=== PATIENT | female | born 1970 | race Caucasian/White ===

== ENCOUNTER → 2017-06-07 | Outpatient (CLI) | payer BC ==
--- NOTE | 2017-06-08 09:11 | MM ---
Reason for exam: screening (asymptomatic). Last mammogram was performed 1 year and 1 month ago. History: Patient is postmenopausal. Physical Findings: A clinical breast exam by your physician is recommended on an annual basis and results should be correlated with mammographic findings. MG Screening Mammo w CAD Bilateral CC and MLO view(s) were taken. Prior study comparison: May 06, 2016, bilateral MG screening mammo w CAD. September 04, 2013, CAD bilateral diagnostic mammogram. The breast tissue is heterogeneously dense. This may lower the sensitivity of mammography. There is no discrete abnormality. No significant changes when compared with prior studies. ASSESSMENT: Negative, BI-RAD 1 RECOMMENDATION: Routine screening mammogram of both breasts in 1 year.
== END | disposition home or self-care (01) ==
LOC: RADMAMWWP 15:20
PROVIDERS: ATTEND Obstetrics & Gynecology
DX: Z12.31 Encounter for screening mammogram for malignant neoplasm of breast (principal)

== ENCOUNTER → 2017-07-20 | Outpatient (CLI) | payer BC ==
--- NOTE | 2017-07-20 12:30 | US ---
EXAMINATION TYPE: Ultrasound MSK LEFT FOOT DATE OF EXAM: 07/20/2017 COMPARISON: NONE CLINICAL HISTORY: 47-year-old female Foot Pain, Lt Foot M79.672. Additional history collected by the emergency medical dispatcher: Right bunionectomy 2 yrs ago; new onset of pain at 2-3rd MTP joint; feels like a palpable area at ball of foot when walking; pain at the dorsal surface too around 1-3 MTP joints; started 1 yr ago--getting worse. Technique: Targeted sonographic examination between the second and third metatarsal heads at the seco nd webspace corresponding to the focal site of patient's pain. Findings: Scanning at the second webspace at the site of patient's pain shows an irregular hypoechoic structure measuring 8 x 9 x 7 mm interposed between the second-third metatarsal heads. There is some vasculari ty around this area. Some images show somewhat more cystic appearance. IMPRESSION: Either a 9 mm intermetatarsal bursal effusion or Nunn's neuroma within the second web space at the site of patient's pain. Difficult to differentiate as some of the images show a somewhat cystic appea sharif.
== END | disposition home or self-care (01) ==
LOC: RADUSWWP 08:58
PROVIDERS: ATTEND Family Medicine
DX: M79.672 Pain in left foot (principal)

== ENCOUNTER 2020-07-07 08:02 | Day surgery (SDC) | payer OTHER ==
[2020-07-01 16:02] VITALS: BMI 23.8
--- NOTE | 2020-07-06 09:26 | HP ---
HISTORY AND PHYSICAL CHIEF COMPLAINT: Right shoulder pain. 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 She notes anterior and lateral pain along with clicking and weakness. She is having pain with any overhead use and at night. She has been taking medications for this with persistent 10 out of 10 pain level. She has tried medications in addition to an injection and home exercises without any real relief. PAST MEDICAL HISTORY: Significant for hypothyroidism. PAST SURGICAL HISTORY: Significant for bilateral foot surgery in addition to a left rotator cuff repair. MEDICATIONS: 1. Cyclobenzaprine. 2. Ibuprofen. 3. Synthroid. 4. Tramadol. ALLERGIES: She denies drug allergies. FAMILY HISTORY: Significant for lung disease. SOCIAL HISTORY: Negative for current tobacco or alcohol use. REVIEW OF SYSTEMS: Sixteen-point review of systems is otherwise reviewed and is noncontributory. PHYSICAL EXAMINATION: On examination, the patient is approximately 5 feet 2 inches, 130 pounds of mesomorphic habitus. HEENT exam is nonfocal. Neck is supple. On the right shoulder, she is tender about the anterior subacromial space. She has moderate subacromial crepitus. Active range of motion of the right shoulder; forward elevation 155, external rotation with arm to side 70 degrees, internal rotation to T11. Motor strength is 5 minus over 5 for abduction and external rotation. Impingement test, Neer test are positive. Her distal neurovascular exam appears intact in the right upper extremity. MRI report for the right shoulder on 06/03/2020 shows evidence of an anterior supraspinatus tear along with AC joint arthritis. IMPRESSION: 1. Right shoulder impingement with symptomatic rotator cuff tear. 2. Right acromioclavicular joint synovitis/arthritis. RECOMMENDATIONS: I talked to the patient at length regarding her condition and treatment options. At this point, she is quite symptomatic and limited because of pain with use and at night despite previous conservative measures. After thorough discussion, she opts to proceed with surgery. We will proceed with right shoulder arthroscopic evaluation with probable subacromial decompression, rotator cuff repair, and possible distal clavicular resection. We will likely perform that as an outpatient procedure. Risks and benefits were discussed at length in layman's terms. MMODL / IJN: [id number] / MTDD
[~2020-07-07 08:02] MED LIST: DEXAMETHASONE SOD PHOSPHATE 4 MG/ML 1 ML VIAL IV ONE; LACTATED RINGERS 1,000 ML IV SCH; LIDOCAINE 1% (10MG/ML) FOR IV START INTRADERMA PRN; MIDAZOLAM 2 MG/2 ML VIAL IV PRN; ONDANSETRON 4 MG/2 ML VIAL IVP ONE
[2020-07-07] MEDS ORDERED: MIDAZOLAM 2 MG/2 ML VIAL IVP ONE (08:57)
[2020-07-07] MEDS ORDERED: GLYCOPYRROLATE 0.2 MG/ML 2 ML VIAL ONE (09:22)
[2020-07-07] MEDS ORDERED: PHENYLEPHRINE 10 MG/ML VIAL ONE (09:22)
[2020-07-07] MEDS ORDERED: fentaNYL (PF) 50 MCG/ML 2 ML AMP ONE (09:22)
[2020-07-07] MEDS ORDERED: SUCCINYLCHOLINE CHLORIDE 100 MG/5 ML SYR IV ONE (09:22)
[2020-07-07] MEDS ORDERED: MIDAZOLAM 2 MG/2 ML VIAL ONE (09:22)
[2020-07-07] MEDS ORDERED: NEOSTIGMINE 1 MG/ML 10 ML VIAL ONE (09:22)
[2020-07-07] MEDS ORDERED: PROPOFOL 10 MG/ML 20 ML VIAL IV ONE (09:22)
[2020-07-07] MEDS ORDERED: ROCURONIUM 10 MG/ML (10 ML VIAL) IV ONE (09:22)
[2020-07-07] MEDS ORDERED: LIDOCAINE 1% INJ 10MG/ML (20 ML MDV) ONE (09:22)
[2020-07-07] MEDS ORDERED: EPINEPHrine (PF) 1 ML in SODIUM CHLORIDE 0.9% IRRIGATIO 3,000 ML IRRIGATION ONE ×8 (09:27)
[2020-07-07] MEDS ORDERED: LACTATED RINGERS 1,000 ML IV ONE ×2 (09:27→13:07)
--- NOTE | 2020-07-07 11:02 | P.OP ---
Date of Procedure: 07/07/20 Preoperative Diagnosis: Symptomatic right rotator cuff tear Postoperative Diagnosis: 2 cm tear right rotator cuff, acromioclavicular joint arthritis/impingement Procedure(s) Performed: Right shoulder arthroscopic subacromial decompression/rotator cuff repair/distal clavicular resection Implants: Arthrex 4.75 mm swivel lock anchor 4 Anesthesia: elisa FINLEY Surgeon: Heriberto Macario Leather Sprayer #1: Luis F Santa Estimated Blood Loss (ml): 10 Pathology: none sent Condition: stable Disposition: PACU Indications for Procedure: The patient's a 50-year-old female who presents with progressive right shoulder pain despite conservative treatment. A discussion of the risks and benefits of operative intervention versus continued conservative measures was made with patient. She opted to proceed with surgery. Operative risks to include infection, neurovascular injury, development of blood clots, possible tendon rerupture, possible postoperative stiffness and need for subsequent procedures was discussed. Informed consent was obtained. Operative Findings: As below Description of Procedure: The patient was brought to the operating room, and after induction of general a nesthesia was placed in a beachchair position. A preoperative interscalene block was placed for postoperative analgesia. I examined the right shoulder. There was no gross block to passive motion or gross glenohumeral instability. The right upper extremity was prepped and draped in normal fashion. The bony outlines the acromion, distal clavicle, and coracoid process were outlined with a skin marker. The glenohumeral joint was inflated with 50 mL of saline utilizing a spinal needle from posterior approach. A posterior portal was made through a 5 mm skin incision 1 cm medial and inferior to the posterior lateral border time. A blunt trocar was used to easily into the joint. Diagnostic arthroscopy was performed. An anterior portal was made just lateral to the coracoid process entering the joint above the subscapularis tendon. The subscapularis tendon appeared to be intact. Anterior labrum was intact. The inferior recess was inspected. The posterior labrum was intact. The intra- articular portion of the proximal biceps was intact along with its anchor. On inspection the rotator cuff, a 2 cm tear involving the supraspinatus was noted with minimal retraction. A lateral portal was made 2 centimeters inferior to the anterior lateral border of the acromion. This was then easily brought back to the greater tuberosity. The soft tissue on the undersurface of the acromion was debrided with a motorized shaver and electrocautery clearly defining the anterior medial and lateral borders as well as the distal clavicle. An anterior inferior acromioplasty was performed with a motorized lauren starting anterolateral, then extending this posteriorly, then extending this medially. I converted to a flat acromion and this was verified in the posterior and lateral viewing portals. The distal 4 mm of clavicle was resected as there was impingement in the subacromial space. The greater tuberosity was lightly decorticating with a shaver down to a bleeding bony surface. An accessory superior lateral portals made just off the lateral edge of the acromion for anchor placement. 2 anchors were then placed just off the articular surface with the appropriate starting awl. 4.75 mm anchors preloaded with #2 fiber tape were placed. Good purchase was obtained. These fiber tapes were then passed the rotator cuff with a scorpion suture passer. A lateral row was created cri sscrossing these tapes. 4.75 mm swivel lock anchors x2 were placed laterally. Good purchase was obtained. Final arthroscopic view showed adequate compression at the footprint. The arthroscope was then removed. The portals were closed with simple 3-0 nylon sutures. A sterile dressing was applied in addition to an abductor brace. The patient was then awoken from general anesthesia and transfe rred to recovery room in good condition. Blood loss was estimated at 10 mL. No complications were incurred. Sponge and needle counts were correct in the case. Terell KIRK assisted and the major components of the case to include arm positioning, anchor placement, and rotator cuff repair.
--- NOTE | 2020-07-07 11:04 | P.ANPRN ---
Procedure Note - Anesthesia - Nerve Block Performed Right Interscalene Single Time Out Performed: Yes Date of Procedure: 07/07/20 Procedure Start Time: :00 Procedure Stop Time: :03 Location of Patient: PreOp Indication: Acute Post-Operative Pain, Requested by Surgeon Sedation Type: Sedate with meaningful contact maintained Preparation: Sterile Prep Position: Supine Needle Types: Pajunk Needle Gauge: 21 Ultrasound used to visualize needle placement: Yes Ultrasound used to observe medication spread: Yes Blood Aspirated: No Pain Paresthesia on Injection Noted: No Resistance on Injection: Normal Image Stored and Saved: Yes Events: Uneventful and Well Tolerated (ropi .5% 20cc plus dexamethasone 4mg)
[2020-07-07] MEDS: HYDROmorphone 1 MG/ML 1 ML SYRINGE IVP ONE ×3 (11:22→11:58)
[2020-07-07 11:24] VITALS: TEMP 97
[2020-07-07] MEDS: fentaNYL (PF) 50 MCG/ML 2 ML AMP IV PRN ×2 (11:36→11:41)
[2020-07-07] MEDS ORDERED: KETOROLAC 15 MG/ML 1 ML VIAL IVP ONE (11:59)
[2020-07-07] MEDS ORDERED: MEPERIDINE 50 MG/ML SYRINGE IVP ONE (12:25)
[2020-07-07 13:06] VITALS: RESP 16
[2020-07-07] MEDS ORDERED: oxyCODONE-APAP 5-325MG 1 EACH TAB ONE (13:31)
[2020-07-07] MEDS ORDERED: oxyCODONE-APAP 5-325MG 1 EACH TAB PO ONE (13:33)
[2020-07-07 14:15] VITALS: BP 137/87; PULSE 84
== END 2020-07-07 14:25 | disposition home or self-care (01) ==
LOC: OR 08:02
PROVIDERS: ATTEND Orthopaedic Surgery
DX: M75.101 Unspecified rotator cuff tear or rupture of right shoulder, not specified as traumatic (principal); M19.011 Primary osteoarthritis, right shoulder; M25.811 Other specified joint disorders, right shoulder; E03.9 Hypothyroidism, unspecified; Z98.890 Other specified postprocedural states; Z79.899 Other long term (current) drug therapy; Z79.1 Long term (current) use of non-steroidal anti-inflammatories (NSAID); Z79.890 Hormone replacement therapy; Z79.891 Long term (current) use of opiate analgesic; Z82.5 Family history of asthma and other chronic lower respiratory diseases
CPT/HCPCS: 64415; 76942; 29827; 29826; 29824; C1713; C1894; J2250; J1100; J2370; J2710; J2175; J2405; J0690; J0171; J2001; J3010; J1170; J1885; J0330; J2704

== ENCOUNTER → 2021-07-15 | Outpatient (CLI) | payer OTHER ==
--- NOTE | 2021-07-16 10:56 | MM ---
Reason for exam: screening (asymptomatic). Last mammogram was performed 4 years and 1 month ago. History: Patient is postmenopausal. Pre-pectoral silicone gel implants in both breasts, November 2020. Physical Findings: A clinical breast exam by your physician is recommended on an annual basis and results should be correlated with mammographic findings. MG Screening Mammo Implant/CAD Bilateral CC, MLO, and ID view(s) were taken. Prior study comparison: June 07, 2017, bilateral MG screening mammo w CAD. May 06, 2016, bilateral MG screening mammo w CAD. The breast tissue is extremely dense which could obscure a lesion on mammography. There is no discrete abnormality. Bilateral breast prothesis. ASSESSMENT: Benign, BI-RAD 2 RECOMMENDATION: Routine screening mammogram of both breasts in 1 year.
== END | disposition home or self-care (01) ==
LOC: RADMAMWWP 13:30
PROVIDERS: ATTEND Obstetrics & Gynecology
DX: Z12.31 Encounter for screening mammogram for malignant neoplasm of breast (principal); Z78.0 Asymptomatic menopausal state
CPT/HCPCS: 77067

== ENCOUNTER → 2021-09-10 | Outpatient (CLI) | payer OTHER ==
--- NOTE | 2021-09-11 04:34 | MR ---
EXAMINATION TYPE: MR lumbar spine wo con DATE OF EXAM: 09/10/2021 COMPARISON: None HISTORY: LBP, LLE radiculopathy. Multiplanar multiecho imaging of the lumbar spine without contrast. Lumbar vertebrae have normal alignment. Disc spaces are fairly normal for age. No compression fractur e. Minimal posterior disc bulging present from L2 to L5 S1 disc. Sacroiliac joints are intact. There is no lumbar paraspinal mass. The lumbar neural foramina are widely patent. There is no spinal stenosis. There is no evidence of fo checo bone destruction. IMPRESSION: Multilevel minimal lumbar disc bulging. No spinal stenosis. No fracture.
== END | disposition home or self-care (01) ==
LOC: RADMRIMAIN 16:41
PROVIDERS: ATTEND Physician Assistant Medical
DX: M51.16 Intervertebral disc disorders with radiculopathy, lumbar region (principal)
CPT/HCPCS: 72148

== ENCOUNTER → 2022-03-02 | Outpatient (CLI) | payer OTHER ==
[2022-03-02 11:32] VITALS: BP 149/83; PULSE 83; RESP 18; TEMP 98.2
--- NOTE | 2022-03-02 14:39 | P.PAINPG ---
PQRS Measure Charge Sheet Comment: HISTORY OF PRESENT ILLNESS: 51 yr old female w at side as a referral from Dr. Wilson presents today w severe and chronic back pain secondary to DDD, spondylosis and facet arthropathy without myelopathy for evaluation. Pt states her pain level is currently at 8/10 in intensity, constant, localized in the L lower aspect of her lumbar spine, achy in character w radiation down the LLE. Pain is provoked by bending/ sitting for periods of 30 min or more. Pain is alleviated w medications (Tylenol OTC, Tramadol, Motrin OTC), injections in the past, ice, heat, PT for neck in Jun 2021, home exercise regimen, repositioning and rest. PMH: OA, Hypothyroidism PSH: R RCT Repair x 2. R interscalene nerve block SH: Negative x 3 FH: Non contributory All: NKDA Meds: See list REVIEW OF ORGAN SYSTEMS: CONSTITUTIONAL: No fevers or chills. No recent weight loss. NEUROLOGICAL: + numbness and tingling along the distal extremities. No seizure disorders or headaches. MUSCULOSKELETAL: + pain PSYCHIATRIC: Denies current depression or suicidal thoughts. Physical Examinations : Constitutional : Cooperative , not in acute distress . Neurologic : Cranial nerve II to XII intact. No focal neurological deficits. Psychiatric : alert & oriented x 3. Matching mood & appropriate affect. Judgment & insight intact. Musculoskeletal : Cervical Spine Motor strength in the deltoid and biceps: Normal right side. Normal Left side Motor strength biceps and the wrist extensors: Normal right side . Normal left side Motor strength in the triceps muscle: Normal right side. Normal left side Deep tendon reflexes: Normal at the biceps. Normal at Brachioradialis. Normal at triceps Vertebral body tenderness to deep palpation over Cervical facet loading test: positive bilaterally Spurling test: positive bilaterally Neck distraction test: positive bilaterally Nga sign: positive bilaterally Lumbar spine Motor strength lower extremities ,thigh and legs 5/5 Right side , 5/5 Left side Deep tendon reflexes : Normal Knee Jerk. Normal Ankle Jerk Vertebral body tenderness over L5 Lumbar facet Loading Test: positive Right / positive Left Range of motion of the lumbar spine Flexion 30 degrees, extension 10 degrees Straight Leg Raise test: Left/ Right positive at degree Kaila test: positive right / positive left. Severe tenderness over the Sacroiliac joint on the Right / Left sides Gaenslen test: positive bilaterally Seated flexion test: positive bilaterally. Sacral spine : Severe tenderness over the Sacroiliac joint: right side / left side Range of motion: Flexion of the lumbar spine <60 degrees Range of motion: Extension of the lumbar spine <20 degrees Gaenslen's Test positive Librado's Test positive Kaila test: positive right side / left side Thigh Thrust Test Sacral Thrust Test Imaging: MRI without contrast of the lumbar spine from 09/10/21 reviewed Assessment/ Plan : Lumbar spondylosis Recommendation of L TFESI L5-S1. May need a series of injections, up to 3 within a 6 mo period, for optimal pain relief. Risks, benefits of procedure discussed and patient verbalized understanding. Denies aspirin or anti- coagulant use or medical history of diabetes. Protocol for discontinuation/ continuation of medications rock procedure discussed. All questions answered. I have spent greater than 30 minutes on patient care today. Dr Davis was available by phone for the evaluation of this patient. The time was used to review the medical records including relevant urine studies and Prescription history (MAPs), review of the available imaging, evaluation and examination of the patient, coordination of care with the medical staff and if applicable referring physicians, as well as creation of the medical record Home Medications: Ambulatory Orders Cyclobenzaprine [Flexeril] 10 mg PO HS 07/01/20 Ibuprofen [Motrin] 600 mg PO Q8HR PRN 07/01/20 Levothyroxine Sodium [Synthroid] 112 mcg PO DAILY 07/01/20 traMADol HCL [Ultram] 50 mg PO TID PRN 07/01/20 oxyCODONE HCL/ACETAMINOPHEN [Percocet 5-325 mg] 1 tab PO Q6HR PRN 3 Days #28 tab 07/07/20 Controlled Substance Measures - Controlled Substance Measures Is patient prescribed a controlled substance at discharge?: No
== END ==
LOC: PNWHC3 11:01
PROVIDERS: ATTEND Specialist
DX: M47.816 Spondylosis without myelopathy or radiculopathy, lumbar region (principal); M50.10 Cervical disc disorder with radiculopathy, unspecified cervical region; M19.90 Unspecified osteoarthritis, unspecified site; E03.9 Hypothyroidism, unspecified
CPT/HCPCS: 99211

== ENCOUNTER → 2022-04-04 | Outpatient (CLI) | payer OTHER | END | disposition home or self-care (01) | LOC: LABPAT 10:32 | PROVIDERS: ATTEND Orthopaedic Surgery | DX: Z01.812 Encounter for preprocedural laboratory examination (principal); M47.812 Spondylosis without myelopathy or radiculopathy, cervical region; M48.02 Spinal stenosis, cervical region; Z22.322 Carrier or suspected carrier of Methicillin resistant Staphylococcus aureus | CPT/HCPCS: 87070 ==

== ENCOUNTER 2022-04-11 07:51 | Inpatient (IN) | payer OTHER ==
--- NOTE | 2022-04-11 06:25 | P.HPOR ---
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 Location posterior Patient notes that their pain radiates to right upper extremity Activity Modification yes Hand Dominance right TREATMENTS COMPLETED: 6 weeks of PT completed? Month and Year of last PT date? 2021 Yes How many sessions? 5 Did it help? No, exacerbated symptoms Physician directed home exercise completed? Patient has trialed the physician directed home exercise program without relief of their symptoms. Medications yes List: tramadol, Motrin, gabapentin, Flexeril, trazodone, MDP w/o relief. Toradol 5 day course trialed after time of last appointment on 02/01/2022 without relief of her symptoms. Alternative interventions Chiropractic: yes w/o relief Massage therapy: No R.I.C.E: yes Brace: No Injections Yes, Dr. Valente How many? multiple Did they help? No RFA: No SUBJECTIVE: Ms. Le returns to the office for a recheck of their cervical spine and to review the planned C3-C6 ACDF. Since the time of the last appointment the patient reports continued cervical pain into the bilateral upper extremities with left upper extremity weakness Overall the patient has seen a progressive increase in symptoms since their onset. Ms. Le symptoms are exacerbated with flexion/extension/twisting of the neck along with weightlifting using the left upper extremity, due to this they notes that it is increasingly difficult for Ms. Le to complete many of their daily tasks. Patient is having severe sleep disturbances as well due to their ongoing pain and associated symptoms. Regarding treatments, the patient has previously trialed all abovementioned treatment modalities without relief. Patient denies trialing any other modalities at this time. Otherwise the patient denies any f/c/sob/cp, no inc ision concerns, no bladder or bowel retention/incontinence, no perineal numbness/tingling, and ambulates independently. HPI: Ms. Le last returned to the office on 02/11/2022 for a recheck of their cervical spine. Since the time of the last appointment the patient reports no changes to her symptoms. Ms. Le symptoms are exacerbated with most daily activities, due to this they notes that it is increasingly difficult for Ms. Le to complete many of their daily tasks. Patient is having severe sleep disturbances as well due to their ongoing pain and associated symptoms. Regarding treatments, the patient has previously trialed all abovementioned treatment modalities without relief of her symptoms. Patient denies trialing any other modalities at this time. Additionally since the last appointment she did complete the Toradol course without any relief of her symptoms. Overall she denies any lasting relief with all modalities trialed thus far. Otherwise the patient denies any f/c/sob/cp, no incision concerns, no bladder or bowel retention/incontinence, no perineal numbness/tingling, and ambulates independently. Of note, the patient does also report having an increase in lumbar pain with bilateral lower extremity radiculopathy (L>R). This is causing her increased issues and is having difficulty with prolonged standing and ambulation due to this. Ms. Le was last seen on 02/01/2022 regarding their neck pain. Patient reports an achy and sharp cervical pain ongoing for 6 years with no known injury or trauma to indicate an exact onset of their symptoms. In addition to their cervical pain, they do report that it radiates into the right upper extremity , associated with numbness and tingling that radiates into the thumb, index finger, middle finger, and ring finger of the right hand. Patient states that she has pinprick feeling into her right forearm. Overall the patient has seen a progressive increase in symptoms since their onset. Ms. Le symptoms are exacerbated with most ADLs, due to this they notes that it is increasingly difficult for Ms. Le to complete many of their daily tasks. Patient is having severe sleep disturbances as well due to their ongoing pain and associated symptoms. Patient denies any difficulty with swallowing. She does report frequent headaches. Regarding treatments, the patient has previously trialed the above listed modalities. Patient denies trialing any other modalities at this time. For their symptoms, the patient has been taking tramadol, Motrin, gabapentin, Flexeril, trazodone, Medrol Dosepak without relief. Otherwise the patient denies any f/c/sob/cp and ambulates independently. The patients' past social, medical, family, surgical history, as well as review of systems, have been reviewed. Please refer to the Neurosurgery History and Ph ysical form that has been scanned in to our electronic medical record system. 16 points review of systems completed and as stated in HPI, all other systems reviewed are negative. Social History: Reviewed, see appropriate section of the chart for details. P3 Social History: Smoking: never a smoker P3 Alcohol: none P3 Family History: Reviewed, see appropriate section of the chart for details. P2 Past Medical History: Reviewed, see appropriate section of the chart for details. [id number] Medications: Rx: cyclobenzaprine 10 mg tablet Ref: 0 Rx: ibuprofen 600 mg tablet Ref: 0 Rx: Synthroid 112 mcg tablet Ref: 0 Rx: ketorolac 10 mg tablet Ref: 0 PHYSICAL EXAMINATION: General: Awake, alert, appropriate for age, in no acute distress. HEENT: No unusual neck masses around region of lateral neck triangle, thyroid, supraclavicular groove Heart: Regular rate and rhythm, normal S1, S2 and no murmur/gallop. Lungs: Clear to auscultation bilaterally with no use of accessory muscles. Extremities: Skin warm and dry without acute lesions, coloration, temperature, skin intact, no tenderness or erythema Integument: Hairy patches: ABSENT Dorsal skin dimples: ABSENT Cafe au lait spots: ABSENT Surgical incisions: n/a Palpation: Please see Pain drawing on Intake sheet for further detail. Midline spinal tenderness: No E6 Cervical Tenderness: No E6 Paralumbar tenderness: No E6 Parathoracic tenderness: No E6 Buttocks tenderness: No E6 Sacroiliac Tenderness: No POSTURAL and MUSCULO-SKELETAL EVALUATION: Coronal Balance: NEUTRAL Recumbent testing: Patient is able to lay flat on back Sagittal Balance: NEUTRAL Shoulder Profile: LEVEL Pelvic Girdle: LEVEL Neck ROM: RESTRICTED Lumbar ROM: UNRESTRICTED Shoulder ROM: Symmetrical Hip ROM: Symmetrical Knee ROM: Symmetrical Hands: Normal appearance, symmetrical Feet: Normal appearance, Symmetrical VASCULAR STATUS : LEFT RIGHT Wrist Pulses INTACT INTACT Pedal Pulses (Dors. pedis & post.tibialis) INTACT INTACT Color NORMAL NORMAL Edema Absent Absent NEUROLOGIC EXAMINATION: Mental Status:Awake and alert, fully oriented, with normal attention, concentration and memory, and fluent, appropriate speech. Cranial Nerves: I: Olfactory not tested. II: Visual acuity normal, no visual field deficit noted with confrontation. III,IV: Normal pupillary reflexes & intact extraocular movements without nystagmus. V,: Intact symmetrical facial sensation. VII: Intact symmetrical facial motor movement VIII: Hearing intact. IX,X: Intact gag, swallow, & normal voice. XI: Sternocleidomastoid, trapezius function intact. XII: Tongue midline with normal movements. L'hermitte's Sign: Negative / absent Spurling'Sign: Absent bilaterally. Cubital percussion test: Absent bilaterally. Enamorado-Tinel sign - Carpal region: Absent bilaterally. Straight Leg Raising: Absent bilaterally. 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 Sensory system (0-4, N/T) Test type RU INDIO RL LL Joint-Position 2 2 2 2 Vibration 2 2 2 2 Pain & LT sense 2 2 2 2 Dermatomal Deficit: None None None L5-S1 Gait and Functional Evaluation: Ambulatory aids: Independent Romberg's test: Intact bilaterally Toe heel walk / heel-toe walk intact while maintaining satisfactory balance? yes Squatting/straightening w/o assistance to a min of 60 degree knee flexion? yes Single leg stance: intact Trendelenburg sign negative bilaterally Hand and finger dexterity intact bilaterally? yes Disdiadochokinesis examination negative bilaterally? yes RADIOGRAPHIC STUDIES: XRay taken on 02/01/22 of Cervical Spine: Moderate multilevel spondylitic changes with reversal of the normal cervical lordosis. Grade 1 retrolisthesis C4 onto C5. Diminished disc height throughout cervical spine. No acute osseous abnormalities. MRI [id number]/25/2022 of Cervical Spine: Images reviewed demonstrate severe spondylotic changes from C3-7 with kyphotic deformity noted C3-4 and C4-5 due to spondylolisthesis. There is disc de ssication, height loss, herniation and stenosis related to these changes. This causes moderate to severe central and foraminal stenosis at these levels. There are no fractures noted. C0-1 and C1-2 are stable. IMPRESSION: It was my pleasure to have seen and examined Zoey. I reviewed the patient's clinical syndrome, physical findings, and imaging studies during the appointment today. It is my impression that the patient has a diagnosis of. 1. C3-C4 kyphotic deformity 2. C3-C7 spondylosis with stenosis 3. bilateral upper extremity radiculopathy 4. left lower extremity radiculopathy 5. L5-S1 left side herniated nucleus pulposus I outlined the natural course history without intervention and various interventional options. PLAN: Based on my findings I suggest the following course of action: - I discussed treatment options with the patient, including operative and non- operative options, and they have elected to proceed with the following surgical procedure: cervical (C3-C6) ACDF (52098, [id number], [id number], [id number]) The indications, risks, benefits, and alternatives to surgery were discussed with the patient and family at length. Specifically (but not limited to) the risks of infection, stiffness, recurrence of symptoms, need for revision surgery, local numbness, neurovascular injury, and blood clots were discussed. The patient's questions were answered. The decision to proceed was made. Consent will be obtained for the procedure. Spine Surgery Risk Review Ms. Le is presenting for evaluation of cervical pain. It was my pleasure to have seen and examined Ms. Le. In our visit today we have had a chance to go over subjective complaints, physical examination findings and treatments including the natural course history without intervention and various interventional options. The patients imaging demonstrates: XRay taken on 02/01/22 of Cervical Spine: Moderate multilevel spondylitic changes with reversal of the normal cervical lordosis. Grade 1 retrolisthesis C4 onto C5. Diminished disc height throughout cervical spine. No acute osseous abnormalities. MRI [id number]/25/2022 of Cervical Spine: Images reviewed demonstrate severe spondylotic changes from C3-7 with kyphotic deformity noted C3-4 and C4-5 due to spondylolisthesis. There is disc dessication, height loss, herniation and stenosis related to these changes. This causes moderate to severe central and foraminal stenosis at these levels. There are no fractures noted. C0-1 and C1-2 are stable. On physical exam, Ms. Le demonstrates restricted cervical ROM with bilateral upper extremity radiculopathy and left upper extremity weakness. I have explained to the patient that as their condition progresses it will cause further neurological deficits and eventual paralysis. Based on the patients imaging, physical exam, and the rapid progression and disabling nature of their symptoms, at this time I recommend surgery in the form or a: cervical (C3-C6) ACDF. I discussed the risk and benefits of this procedure at length with Ms. Le. The patient agreed to considered pursuing the procedure abovementioned. Prior to surgery, she should follow up with her PCP (Cardio, ID, IM etc) for clearance. Questions were invited and answered, and the patient wishes to proceed as outlined below. Currently, I am recommendin.cervical (C3-C6) ACDF 2.Follow up with PCP for surgical clearance 3.Review of surgical risks and benefits as well as an educational packet on the proposed surgical procedure. Risks: All surgical procedures come with inherent risks, including those related to positioning, anesthesia, intraoperative findings, and postoperative complications. It is important to understand that surgery does not come with any guarantee of a successful outcome as complications and adverse events are always possible. The patient was given a handout in office today discussing the surgical procedure and risks associated with the intervention, both of which were discussed with the patient. These risks include but are not limited to the following: * Experiencing same, different or even worse symptoms in back, neck, arms, or legs compared to before surgery. Requiring further surgery or other forms of treatment presently or at some time in the future at same or other levels of the intended spine surgery. On an extreme but fortunately relatively rare basis severe complication such as blindness, stroke, heart attack, temporary and/or permanent nerve injury, paralysis, coma, or may occur, sometimes without known explanation. Surgical complications may include but are not limited to risk of infection, fluid accumulation in the surgical dissection site, including a seroma or hematoma, that requires additional surgery, wound drainage, bleeding, new numbness or weakness, vision changes/loss, spinal fluid leakage, non-healing and/or infected incision, headaches, difficulty or inability to swallow, hoarseness, hemopneumothorax, pneumothorax, impotence, retrograde ejaculation, vaginal dryness; injury to nerves, spinal cord, blood vessels, lymphatics or other vital organs (i.e., bowel injury, injury to the great vessels); heterotopic bone formation; complications related to the hardware such as screws, rods, cages including misplaced hardware, device failure, instrumentation at the wrong spine level, hardware fracture/breakage, or hardware loosening; vertebral failure of the spinal column above or below the newly placed hardware; retained surgical instrumentations or devices and the need for further surgery. * Medical risks of the planned spine surgery include but are not limited to generalized Infections to the whole body or local areas outside of the surgical site (sepsis), heart attack, bleeding, anaphylaxis, meningitis, seizure, epilepsy, hearing loss, burn bruce, laceration of the head or other areas of the body, bruising, hypersensitivity of the skin, bladder over distension; allergic reaction; shoulder injury related to positioning; fat, blood and air clots to other areas of the body like heart, lungs, brain; failure of internal organs such as lungs, kidneys, liver and excessive blee ding. If blood transfusions are necessary, note that transfusions may cause intolerance reactions such as anaphylaxis or other complex reactions. Despite best efforts, the results of spine surgery might not heal in terms of bone, soft tissues such as skin, fascia, ligaments, and joints. Additionally, in order to achieve best possible results, spine surgery may be carried out beyond the initially planned levels and involve decompression, fusion including insertion of hardware at levels other than the original intended area of surgical interest change some portions of the procedure in order to ensure the best possible outcomes. With spine surgery and spinal fusion, there are different off label uses of instrumentation (devices, implants and hardware) as well as biological substances (bone morphogenic proteins, demineralized bone matrix) as well as using extra bone from allograft sources (i.e. cadaver bone) or autograft (iliac crest bone, ribs, or the spine itself). The patient has been given information about these practices and their inherent risks and benefits. [facility] is an educational center that serves as a training facility for neurosurgical and orthopedic [employer] and Nursing students. Physician assistants are medically trained surgical providers who function in the outpatient, inpatient, and operating room setting under the direct supervision of the attending surgeon. [facility] has multiple operating rooms with single and overlapping rooms running daily. They currently function under the required guidelines as produced by the [facility] Finance Committee with regards to the overlapping rooms and will continue to comply with changes to this policy as they occur. The requirements include and are complied with as follows: (1) the critical portions of the overlapping rooms will not occur at the same time, (2) the attending physician will be physically present during the critical portions of the procedure and immediately available during the entire case, and (3) a back-up attending is designated should the primary attending not be immediately available. The patient has had a chance to review all the listed information, has been given print outs detailing this information, and has had all his/her questions answered to their satisfaction. It was my pleasure to have seen and examined Ms. Le. In our visit today we have had a chance to go over my understanding of our patient's current condition, the natural course history without intervention and various interventional options. Questions were invited and answered, and the patient wishes to proceed as outlined above. I have seen and examined the patient for 25 minutes and we have spent more than 50% of the time in repeat and detailed counseling about the patient's condition, its natural course history with out and as much as can be predicted with surgery and re-review of various surgical treatment options. In conclusion, Ms. Le requested we proceed with the above suggested surgery and are willing to accept risks and limitations of the suggested surgery as nature of the disease process and our best attempts at treatment for the condition. Thank you again for allowing us to be part of your patient's care. Please don't hesitate to contact me if you have any further questions. Signed and authenticated by: [employer] P:\\\\ppart\\\\[id number]\\\\[id number] \\\\[id number].PNG \\d Hola Wilson DO [facility] Complex and Minimally Invasive Spine Surgery [address] [place], [place] [id number] Follow- up: 2 weeks post-op Patient Education: (Informational booklet, instructions, etc) given at today's appointment: Yes .ED:Patient Education: Y Plan at next visit: pre-operative review Medications Reviewed: YES In our visit today Ms. Le and I have had a chance to go over my understanding of the patient's current condition, the natural course history without intervention and various interventional options. Questions were invited and answered, and the patient wishes to proceed as outlined above. I will be sure to keep you updated afterMs. Le returns here for further follow-up. Thank you again for your referral. Please do not hesitate to contact me if you have any further questions. Signed and authenticated by: Hola Wilson DO [facility] Complex and Minimally Invasive Spine Surgery [address] [place] [id number] This message is confidential, intended only for the named recipient(s) and may contain information that is privileged or exempt from disclosure under applicable law. If you are not the intended recipient(s), you are notified that the dissemination, distribution or copying of this information is strictly prohibited. If you received this message in error, please notify the sender then delete this message. Patient verbalizes understanding of the information discussed. The above note was initiated by Hola Machuca, physician recording web production assistant for Dr. Hola Wilson. This note has been reviewed by Dr. Wilson, who has made his personal changes and impressions for this document. CC: Dylon Nelson D.O. # SIGNED BY Hola Wilson ([facility])04/11/2022 06:24AM Past Medical History Past Medical History: Thyroid Disorder History of Any Multi-Drug Resistant Organisms: None Reported Past Surgical History: Breast Surgery, Orthopedic Surgery, Tubal Ligation, Uterine Ablation Additional Past Surgical History / Comment(s): bg bunionectomy, bg shoulder rotator cuff repair, breast augmentation, ASD closure 2008, breast reconstruction/excess tissue removal 2000, rt pelvic lymph node removed 1993 pain clinic procedures Past Anesthesia/Blood Transfusion Reactions: No Reported Reaction Smoking Status: Never smoker - Past Family History Mother Family Medical History: Cancer Additional Family Medical History / Comment(s): lung CA Medications and Allergies Home Medications Medication Instructions Recorded Confirmed Type Cyclobenzaprine [Flexeril] 10 mg PO HS 07/01/20 04/07/22 History Ibuprofen [Motrin] 600 mg PO Q8HR PRN 07/01/20 04/07/22 History traMADol HCL [Ultram] 50 mg PO TID PRN 07/01/20 04/07/22 History Levothyroxine Sodium [Synthroid] 100 mcg PO QAM 03/28/22 04/07/22 History Zolpidem [Ambien] 10 mg PO HS 03/28/22 04/07/22 History ALPRAZolam [Xanax] 0.25 mg PO DAILY PRN 04/07/22 04/07/22 History Allergies Allergy/AdvReac Type Severity Reaction Status Date / Time No Known Allergies Allergy Verified 04/07/22 15:28 Physical Examination Osteopathic Statement: *. No significant issues noted on an osteopathic structural exam other than those noted in the History and Physical/Consult.
[~2022-04-11 07:51] MED LIST changes: +ACETAMINOPHEN TAB 500 MG TAB PO PRN; +GABAPENTIN 300 MG CAP PO PRN; -LACTATED RINGERS 1,000 ML IV SCH; -LIDOCAINE 1% (10MG/ML) FOR IV START INTRADERMA PRN; -MIDAZOLAM 2 MG/2 ML VIAL IV PRN; +ONDANSETRON 4 MG/2 ML VIAL IVP PRN; +TRANEXAMIC ACID IN NACL,ISO-OS 1,000 MG in SALINE 1 100ML.BAG IVPB PRN
[2022-04-11 08:35] LABS: Glucose,Whole Blood 112 mg/dL (70-110)
[2022-04-11] MEDS ORDERED: LACTATED RINGERS 1,000 ML IV ONE ×2 (08:42→08:43)
[2022-04-11] MEDS ORDERED: MIDAZOLAM 2 MG/2 ML VIAL IVP ONE (08:48)
--- NOTE | 2022-04-11 10:29 | P.PN ---
Progress Note - Text Progress Note Date: 04/11/22 History and Physical UPDATE I have seen and examined the patient and reviewed the history and physical. There appear to be no significant changes in the patient's current medical status as outlined in the current History and Physical.
[2022-04-11] MEDS ORDERED: KETAMINE 10 MG/ML 20 ML VIAL ONE (11:14)
[2022-04-11] MEDS ORDERED: fentaNYL (PF) 50 MCG/ML 2 ML AMP ONE (11:14)
[2022-04-11] MEDS ORDERED: TRANEXAMIC ACID IN NACL,ISO-OS 1,000 MG/100 ML BAG ONE (11:14)
[2022-04-11] MEDS ORDERED: GELATIN SPONGE,ABSORB (LARGE) 1 EACH SPONGE TOPICAL ONE (11:14)
[2022-04-11] MEDS ORDERED: PROPOFOL 10 MG/ML 20 ML VIAL IV ONE (11:14)
[2022-04-11] MEDS ORDERED: MIDAZOLAM 2 MG/2 ML VIAL ONE (11:14)
[2022-04-11] MEDS ORDERED: SUCCINYLCHOLINE CHLORIDE 200 MG/10 ML VIAL IV ONE (11:14)
[2022-04-11] MEDS ORDERED: LIDOCAINE 2% INJ 20 MG/ML (2 ML VIAL) ONE (11:14)
[2022-04-11] MEDS ORDERED: THROMBIN (BOVINE) 5,000 UNIT VIAL TOPICAL ONE (11:14)
[2022-04-11] MEDS ORDERED: HYDROcodone/APAP 5-325MG 1 EACH TAB PO PRN (14:20)
[2022-04-11] MEDS ORDERED: SENNOSIDES-DOCUSATE SODIUM 1 EACH TAB PO PRN (14:20)
--- NOTE | 2022-04-11 14:31 | XR ---
Limited cervical spine HISTORY: Cervical fusion 46 seconds fluoroscopy time supplied to the referring clinician, 4 intraoperative C-arm images docume nt the procedure
--- NOTE | 2022-04-11 14:42 | P.PN ---
Progress Note - Text Progress Note Date: 04/11/22 Brief Post Op: Surgeon: Steve Pre op dx;C3 to 6 spondylosis with spondylolisthesis and stenosis Post op dx: same Procedure: C3 to 6 ACDF Anesthesia: GETA EBL: 50 Fluids: 1000 UO: 250 Dispo: Stable to PACU Post op Plan: Post operative noncontrasted CT scan advanced diet from liquids as tolerated Encourage ambulation IS 10x/hr Teds/SCDs Pain control soft cervical collar Record Drain output
[2022-04-11] MEDS: HYDROmorphone 0.5 MG/0.5 ML SYRINGE IVP PRN ×4 (14:59→20:47)
[2022-04-11] MEDS: CYCLOBENZAPRINE 5 MG TAB PO PRN (16:25)
[2022-04-11 18:36] LABS: Glucose,Whole Blood 108 mg/dL (70-110)
[2022-04-11] MEDS: LACTATED RINGERS 1,000 ML IV SCH (18:39)
[2022-04-11] MEDS: GABAPENTIN 300 MG CAP PO SCH (18:41)
[2022-04-11] MEDS: ACETAMINOPHEN TAB 325 MG TAB PO SCH (18:41)
[2022-04-11] MEDS: HYDROcodone/APAP 10-325MG 1 EACH TAB PO PRN ×2 (18:56→23:11)
[2022-04-12] MEDS: HYDROmorphone 0.5 MG/0.5 ML SYRINGE IVP PRN ×3 (00:27→08:10)
[2022-04-12] MEDS: GABAPENTIN 300 MG CAP PO SCH ×4 (01:07→22:10)
[2022-04-12] MEDS: ACETAMINOPHEN TAB 325 MG TAB PO SCH ×4 (02:36→18:57)
--- NOTE | 2022-04-12 02:54 | CT ---
EXAMINATION TYPE: CT cervical spine wo con DATE OF EXAM: 04/12/2022 COMPARISON: None HISTORY: POST OP C3-C6 CT DLP: 270 mGycm Automated exposure control for dose reduction was used. Images obtained from the skull base to T1 vertebra without contrast. The cervical vertebra have normal alignment. Plate with screws fusing anteriorly the cervical spine f rom the level of C3-C6. There is disc prosthesis from C3 to C6. The posterior elements are intact. Fa cet joints are intact. There is soft tissue air in the anterior neck on the right side consistent wit h recent surgery. Prevertebral soft tissues are not enlarged. The skull base is intact. The occipital bone is intact. There is normal aeration of the mastoid sinuses. There is a drain in the prevertebra l soft tissues. IMPRESSION: Recent anterior multilevel fusion surgery. No complicating process seen.
[2022-04-12] MEDS: LACTATED RINGERS 1,000 ML IV SCH (03:36)
[2022-04-12] MEDS: HYDROcodone/APAP 10-325MG 1 EACH TAB PO PRN ×4 (05:35→22:10)
[2022-04-12 07:34] LABS: Basophils % (A) 0 %; Eosinophils % (A) 0 %; HGB 12.5 gm/dL (11.4-16.0); Lymphocytes # (A) 2.4 k/uL (1.0-4.8); Lymphocytes % (A) 14 %; MCH 30.6 pg (25.0-35.0); MCHC 32.8 g/dL (31.0-37.0); MCV 93.4 fL (80.0-100.0); Mean Platelet Volume 8.8; Monocytes # (A) 0.9 k/uL (0-1.0); Monocytes % (A) 5 %; Neutrophils # (A) 13.1 k/uL (1.3-7.7); Neutrophils % (A) 79 %; Platelet Count 322 k/uL (150-450); RBC 4.07 m/uL (3.80-5.40); RDW 12.7 % (11.5-15.5); WBC 16.6 k/uL (3.8-10.6)
[2022-04-12 07:54] LABS: African American GFR (CKD) >90 (>60 ml/min/1.73 sqM); Anion Gap 11 mmol/L; Blood Urea Nitrogen 9 mg/dL (7-17); Calcium 8.5 mg/dL (8.4-10.2); Carbon Dioxide 23 mmol/L (22-30); Chloride 104 mmol/L (98-107); Glucose 135 mg/dL (74-99); Non-African American GFR(CKD) >90 (>60 ml/min/1.73 sqM); Potassium 3.7 mmol/L (3.5-5.1); Sodium 138 mmol/L (137-145)
[2022-04-12] MEDS ORDERED: BENZOCAINE/MENTHOL LOZENG 1 EACH LOZENGE MUCOUS MEM PRN (08:07)
--- NOTE | 2022-04-12 08:31 | P.PN ---
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 Patient is resting semi-recumbent in bed. Her spouse is at bedside. Patient states that her pain is managed on current regimen. She does have complaint of bilateral shoulder pain, encouraged use of ice and heat packs. Patient also reports that she had bit her tongue, underside of her tongue is bruised. Surgical dressing is clean dry and intact with PARVIZ drain present. Drain will be removed later today. Puckett catheter is present, this may be discontinued this morning. Patient is looking forward to working with physical therapy. She denies fevers/chills, nausea/vomiting, or chest pain. Objective - Vital Signs Vital signs: Vital Signs Temp 98.8 F 04/12/22 02:00 Pulse 90 04/12/22 02:00 Resp 15 04/12/22 02:00 BP 128/76 04/12/22 02:00 Pulse Ox 97 04/12/22 02:00 FiO2 Intake & Output 04/11/22 04/12/22 04/12/22 18:59 06:59 18:59 Intake Total 1750 240 Output Total 550 635 Balance 1200 -395 Weight 59.72 kg Intake: IV 1750 Intake, IV Titration 240 Amount Lactated Ringers 1,000 ml 240 @ 20 mls/hr IV .Q24H [facility] Rx#:[id number] Output: Drainage 35 Anterior Neck 35 Urine 500 600 Estimated Blood Loss 50 Other: Voiding Method Indwelling Catheter - Exam Physical Examination General: The patient is awake and alert, in no acute distress Skin: Skin is warm and dry with no obvious rashes or lesions. Hairy patches absent, no dorsal skin dimples, no cafe au lait spots. Surgical incision to the right anterior cervical region. PARVIZ drain intact. Eye: Pupils are equal, round and reactive to light, extra-ocular movements are intact; there is normal conjunctiva bilaterally. Neck: The neck is supple, there is slight tenderness and limited ROM due to surgical procedure Cardiovascular: There is a regular rate and rhythm. No murmur, rub or gallop is appreciated. Respiratory: Lungs are clear to auscultation, respirations are non-labored, breath sounds are equal. Gastrointestinal: Soft, non-distended, non-tender abdomen . Back: There is no tenderness to palpation in the midline, paralumbar, parathoracic or buttocks region. There is no obvious deformity . Musculoskeletal: ROM limited secondary to pain and stiffness from surgical procedure. Muscle strength 5/5 in all major muscle groups of the bilateral lower extremities. 4/5 in bilateral upper extremities. Neurological: CN 2-12 intact. There are no obvious motor or sensory deficits. Movement and coordination equal and intact. Sensory exam to light touch intact C5-T1 and intact from L2-S1. Reflexes 2/4 in bilateral upper and lower extremities. Negative Hoffmans, babinski, and clonus signs. Psychiatric: Cooperative, appropriate mood & affect, normal judgment. - Labs CBC & Chem 7: 04/12/22 06:45 04/12/22 06:45 Labs: Abnormal Lab Results - Last 24 Hours (Table) 04/11/22 04/12/22 04/12/22 Range/Units 08:33 06:45 06:45 WBC 16.6 H (3.8-10.6) k/uL Neutrophils # 13.1 H (1.3-7.7) k/uL Glucose 135 H (74-99) mg/dL POC Glucose (mg/dL) 112 H (70-110) mg/dL Assessment and Plan Assessment: s/p Post Op day 1: C3-C6 ACDF C3-C7 Spondylosis with Stenosis C3-C4 Kyphotic Deformity Bilateral Upper Extremity Radiculopathy Plan: Plan: -Appreciate internal controls consultant and team management. -Activity: Ambulate QID, OOB all meals, up and about, limit lifting bending twisting to less than 5 lbs. Use walker or cane if needed for stability. -Daily PT/OT, increase ambulation strength and balance. -Brace when up and about, not needed in bed or chair -Pain control: Adequate at this time -Meds: reviewed -GI ppx: senna, Miralax -DC puckett when up and about, bedside commode if needed -DVT PPX: OK to restart Heparin tonight -Hygiene: Shower today. Maintain dressing clean and dry. -Drains: Maintain for now. DC later today. -Encourage IS 10x/hr -Dispo: Anticipate discharge home today or tomorrow *I reviewed and discussed this case with my attending Dr. Wilson, whom has reviewed this chart and films and is in agreement with assessment and plan of care as outlined above. I have personally seen and examined the patient, performed the documentation and the assessment and plan as written. Number of minutes spent on the visit: 20m.
[2022-04-12] MEDS: LEVOTHYROXINE 100 MCG TAB PO SCH (10:53)
[2022-04-12] MEDS: HYDROmorphone 1 MG/ML 1 ML SYRINGE IVP PRN ×3 (11:29→18:57)
--- NOTE | 2022-04-12 11:39 | P.DS ---
Providers Date of admission: 04/11/22 07:51 Expected date of discharge: 04/12/22 Attending physician: Hola Wilson DO Consults: 04/11/22 14:20 Consult Physician Routine Consulting Provider: Karina Petersen Consult Reason/Comments: medical management s/p C3-C6 ACDF Do you want consulting provider notified?: Yes Primary care physician: [facility] Course: Hospital Course: The patient was evaluated preoperatively and found to have the diagnosis of cervical spondylosis. They underwent appropriate preoperative care and were willing to undergo the intended procedure. They underwent a successful C3-C6 ACDF, were recovered appropriately and sent to the floor. While on the floor they worked with physical therapy, occupational therapy and nursing to enhance their recovery experience. Their pain was well controlled through their stay and they were started on appropriate medications, DVT ppx modalities, activity and dietary needs. Daily labs were monitored closely, and transfusions were only used when necessary. Medicine as well as other consulting services have made their input and have helped with our team approach and multidisciplinary care. PT milestones have been met and passed and they have made the recommendation of home for this patient and treating providers agree with this care path. The patient will be discharged home with appropriate medications, instructions and follow-up information and in stable condition. Patient Condition at Discharge: Good Plan - Discharge Summary Discharge Rx Participant: No New Discharge Prescriptions: New Gabapentin [Neurontin] 300 mg PO TID #90 cap cefaDROXiL [Duricef] 500 mg PO Q12HR 3 Days #6 cap Cyclobenzaprine [Flexeril] 5 mg PO TID #90 tablet HYDROcodone/APAP 10-325MG [Parshall 10-325] 1 tab PO Q4-6H PRN #56 tab PRN Reason: Pain Sennosides/Docusate Sodium [Senna Plus 8.6-50 mg Softgel] 1 each PO DAILY PRN #20 capsule PRN Reason: Constipation No Action Ibuprofen [Motrin] 600 mg PO Q8HR PRN PRN Reason: Pain traMADol HCL [Ultram] 50 mg PO TID PRN PRN Reason: Pain Cyclobenzaprine [Flexeril] 10 mg PO HS Zolpidem [Ambien] 10 mg PO HS Levothyroxine Sodium [Synthroid] 100 mcg PO QAM ALPRAZolam [Xanax] 0.25 mg PO DAILY PRN PRN Reason: Anxiety Discharge Medication List Cyclobenzaprine [Flexeril] 10 mg PO HS 07/01/20 [History] Ibuprofen [Motrin] 600 mg PO Q8HR PRN 07/01/20 [History] traMADol HCL [Ultram] 50 mg PO TID PRN 07/01/20 [History] Levothyroxine Sodium [Synthroid] 100 mcg PO QAM 03/28/22 [History] Zolpidem [Ambien] 10 mg PO HS 03/28/22 [History] ALPRAZolam [Xanax] 0.25 mg PO DAILY PRN 04/07/22 [History] Cyclobenzaprine [Flexeril] 5 mg PO TID #90 tablet 04/12/22 [Rx] Gabapentin [Neurontin] 300 mg PO TID #90 cap 04/12/22 [Rx] HYDROcodone/APAP 10-325MG [Parshall 10-325] 1 tab PO Q4-6H PRN #56 tab 04/12/22 [Rx] Sennosides/Docusate Sodium [Senna Plus 8.6-50 mg Softgel] 1 each PO DAILY PRN #20 capsule 04/12/22 [Rx] cefaDROXiL [Duricef] 500 mg PO Q12HR 3 Days #6 cap 04/12/22 [Rx] Follow up Appointment(s)/Referral(s): Regi Malone NPC [Nurse Practitioner] - 2 Weeks Dylon Nelson DO [Primary Care Provider] - 1 Week Activity/Diet/Wound Care/Special Instructions: Spine Discharge and Recovery Instructions Date of Surgery: 04/11/2022 Diagnosis: Cervical spondylosis Procedure: C3 C6 ACDF Medications: See medication list All medication refills should be obtained through your primary care doctor or your clinic spine surgeon. Please discuss prescription refills at your follow up appointment. Do not call the hospital for medication refills. Dressing: Leave your dressing in place for a total of 5 days post operatively. Then you may remove your dressing and leave open to air. Keep the area clean and if not able to keep area clean, then cover with sterile gauze and tape. Showering: You may shower 3 days after your procedure allowing soap and water to run over incision. Do not scrub. Do not soak. Blot dry. Follow up: Please confirm a follow up appointment with your surgeon 3 weeks post operatively. Please make an appointment to follow up with your PCP in 1-2 weeks after beyer rgery for evaluation 3 phase, 3-week plan POST OP WEEKS 1-3 1. Lifting/carrying/pushing/pulling limited to less than 5 pounds. 2. Do not sit for longer than 15 minutes at one time. Get up and walk around. Prolonged sitting is NOT advised. If you lay down, see if you can tolerate laying down on you front (belly side) 3. Walk for periods of 15 minutes = 1 mile but no longer; do it multiple times times each day. 4. Ice your low back after activity. POST OP WEEKS 3-6 1. Lifting limited to less than 20 pounds. 2. Do not sit for longer than 30 minutes at a time. Frequently change positions. Use a sit-to stand workstation or take frequent breaks from sitting if you have returned to work. 3. Walk for 30 minutes each day. If possible, do these three or more times a day POST OP WEEKS 6+ At your 6-week appointment we will give you a physical therapy referral to focus on a core stabilization and strengthening program. You should also work on leg & buttock strengthening, hamstring & quadriceps stretching, and continue a low impact aerobic activity program such as swimming, walking, or riding a stationary bicycle. During the initial 6 weeks after your surgery, you are at the highest risk of re-injuring your spine. You should generally avoid BLTs (bending, lifting and twisting combination motions) and follow the above guidelines to reduce the chance of reinjury. You can anticipate post op appointments in our office at approximately 3 weeks and 6 weeks after your surgery. INCISION CARE: If your incision is not draining you do NOT need to cover it with a dressing. Keep your incision clean, dry and intact. In most cases, we apply skin glue, roque or sutures to the incision at the time of surgery. This will be like a crust or have the appearance of a scab and will fall off in time on its own. The stitches or roque need to be removed at 3 weeks post op appointment. You may begin to shower 3 days after surgery (this allows the glue to arango well). However, please avoid scrubbing the incision site or peeling off any of the skin glue. This will ensure optimal healing of your incision. Also, during this time avoid soaking the incision area in water - this includes swimming pools, hot tubs or baths. No ointments, lotions or oils on the incision until your surgeon allows. Leave roque, sutures or glue in place. Neurological dysfunction that comes on suddenly can also be a sign of a stroke. Below some common symptoms of a stroke are listed: B - balance difficulty such as sudden onset walking or leaning to one side - NEW E - eye problem such as sudden double vision or trouble seeing on one side - NEW F - Facial weakness or numbness on one side - NEW A - Arm or leg weakness or numbness on one side - NEW S - Slurred speech or difficulty with word finding - NEW T - Time is BRAIN! Call 911 as soon as you recognize these symptoms Diet: Consume a regular diet rich in vegetables and lean protein such as chicken or fish. You should consume in a ratio of approximately 20% fats|40% carbohydrates|40%protein. Vegetables, sweet potatoes, brown rice or quinoa are examples of good carbohydrates. Chips, white bread, cookies and sweets/sugar are examples of bad carbohydrates. Limit your bad carbs, go wild with good carbs. "Life's Simple 7" Guidelines as per [place] [employer] These will help you reclaim your life after surgery and roll up helper in your recovery, keeping in mind your restrictions. (1) Get Active. Physical activity can help people lose weight, control high blood pressure and cholesterol, feel emotionally better, and sleep better. (2) Control Cholesterol. Avoid a diet high in saturated fat, trans fat, & cholesterol. Limit whole milk & cream, ice cream, butter, egg yolks, processed meats (like sausage and hot dogs), and fatty meats. Choose healthy foods that are low in saturated fat, trans fat and cholesterol which include: Fruits and vegetables, fiber rich grain products (like whole grain pasta and brown rice), lean meat such as chicken, fish, nuts, seeds, and legumes. (3) Eat Better. Eat small portions. Shop at the grocery with a list and do not stray from it. Tips for a healthy diet include: Limit sodium intake to less than 1500mg daily, avoid prepackaged, processed, and fast foods, choose a diet rich in fruits, vegetables, and whole grain, high fiber foods, and limit saturated & cholesterol in your diet. (4) Manage Blood Pressure. If you have high blood pressure, you should have a cuff at home so that you can check your blood pressure regularly. Be sure you have a good cuff. An arm one is generally better than a wrist one. Bring the cuff to a doctor's appointment to validate that the measurements that your cuff are taking are accurate. Take your blood pressure twice daily when you are sitting down and relaxing. Record the numbers in a log and bring this log with you to your doctors' appointments. (5) Lose Weight if your BMI is above 25. A healthy BMI is between 19-25. To calculate Your BMI, you may use a Standard BMI Calculator on the NIH BMI website: <www.nhlbi.nih.gov/guidelines/obesity/BMI/bmicalc.htm>. Weigh oneself daily. If you are overweight, set a goal to lose weight. A pound a week loss if needed is a good target. (6) Reduce Blood Sugar. Limit foods and liquids with "added sugars." (Added sugars include sucrose, fructose, glucose, maltose, dextrose, high fructose corn syrup, corn syrup, concentrated fruit juice and honey). (7) Stop Smoking. If you smoke, quitting smoking is one of the best things that you can do for your health. Smoking increases your risk of heart attack, stroke, and peripheral vascular disease, which is a build-up of plaque in your arteries. Please discard all the cigarettes and lighters in your house. Have a plan for what you will do when you have the urge to smoke. Direct and second- hand smoke shortens your life as well as the lives of your family, friends and others around you. For your health and the health of those around you, please consider quitting! Proper Bending Body Mechanics: Maintain a wide stance with one foot slightly in front of the other. Keep your back straight. Bend utilizing the strength in your hips and knees. Do not bend at the waist. Maintain the lifted object at your waist-level close to your body. Avoid lifting weight that causes immediately pain or pain anywhere in the body afterwards. Smoking/Nicotine If there was ever one thing that you could do to increase your overall health, decrease your risk of cardiovascular problems by about 39% the second you make the choice, it is to STOP SMOKING. Your body's most instant gratification is the second you stop smoking. We have all heard the studies, read the articles but it is true, smoking is extremely bad for your overall health, and moreover it is detrimental to your bone health. Nicotine, IN ANY FORM, kills bone cells, prevents your body from healing fractures, and significantly prolongs healing after surgery. In spine surgery specifically, it increases your risk of not healing your bones to create a fusion and increases your risk of having a revision surgery due to this up to 60%. I know it is hard. I know it feels impossible. But there are ways. Take control of your life. We are here to help you through it. And when you are ready, ask us and we can direct you to help if you desire. Use the START Plan to Quit Smoking (please visit the Helpguide.org website listed below for more information): S = Set a quit date. Choose a date within the next 2 weeks, so you have enough time to prepare without losing your motivation to quit. If you mainly smoke at work, quit on the weekend, so you have a few days to adjust to the change. T = Tell family, friends, and co-workers that you plan to quit. Let your friends and family in on your plan to quit smoking and tell them you need their support and encouragement to stop. Look for a quit beulah who wants to stop smoking as well. You can help each other get through the rough times. A = Anticipate and plan for the challenges you'll face while quitting. Most people who begin smoking again do so within the first 3 months. You can help yourself make it through by preparing ahead for common challenges, such as nicotine withdrawal and cigarette cravings. R = Remove cigarettes and other tobacco products from your home, car, and work. Throw away all your cigarettes (no emergency pack!), lighters, ashtrays, and matches. Wash your clothes and freshen up anything that smells like smoke. Shampoo your car, clean your drapes and carpet, and steam your furniture. T = Talk to your doctor about getting help to quit. Your doctor can prescribe medication to help with withdrawal and suggest other alternatives. If you can't see a doctor, you can get many products over the counter at your local pharmacy or grocery store, including the nicotine patch, nicotine lozenges, and nicotine gum. Resources for Quitting Smoking: <https://www.[place].gov/documents/[facility]/Quit_Tobacco_Resources_for _patients_313480_7.pdf> Supplementation: Take recommended dosages of Vitamin D and Calcium to help fortify your bones and help them to heal. See your health maintenance packet for dosages and recommended levels. DVT/VTE prophylaxis: You will be given compression stockings from the hospital. Wear these daily for the first two weeks after surgery. You may take them off at night. You may be prescribed a medication to help thin your blood. Take this as directed. If you are not prescribed this medication, early and frequent ambulation has been shown to be the best prophylaxis to deep vein thrombosis and sequelae related to this event. Discharge Disposition: HOME SELF-CARE
--- NOTE | 2022-04-12 12:14 | P.PN ---
Progress Note - Text Progress Note Date: 04/12/22 Upon entering room, patient is sitting up in chair. PARVIZ drain has been removed, pt tolerated well. Patient request to stay an additional night due to pain control. Discharge order has been cancelled and we will reassess tomorrow 04/13/22.
[2022-04-12] MEDS: CYCLOBENZAPRINE 5 MG TAB PO PRN (14:00)
[2022-04-12] MEDS ORDERED: ALPRAZolam 0.25 MG TAB PO PRN (15:31)
--- NOTE | 2022-04-12 15:37 | P.CONS ---
History of Present Illness - Reason for Consult Consult date: 04/12/22 - History of Present Illness Patient is a 51-year-old female with PMH of insomnia, anxiety, hypothyroidism presents to [facility] for elective surgery. She underwent C3 to C6 ACDF under Dr. Wilson. [facility] has been consulted for medical management of this patient. Patient was seen and examined. No acute events overnight. Patient reports excruciating pain in her cervical area at the site of surgery. She denies any headache, lower extremity edema, nausea or vomiting, fever or chills, cough, chest pain, shortness of breath, palpitations, changes in urination or bowel habits. No changes in appetite or weight. She denies any dizziness, numbness/weakness or tingling of the extremities. Review of systems is performed and is negative except above. General: non toxic, no distress, appears at stated age Derm: warm, dry Head: atraumatic, normocephalic, cervical collar intact with PARVIZ drain Eyes: EOMI, no lid lag, anicteric sclera Mouth: no lip lesion, mucus membranes moist Cardiovascular: S1S2 reg, no murmur Lungs: CTA bilateral, no rhonchi, no rales , no accessory muscle use Ext: no gross muscle atrophy, no edema, no contractures Neuro: no focal neuro deficits Psych: Alert, oriented, appropriate affect #SIRS #Anxiety #Insomnia #Hypothyroidism Patient meet SIRS criteria with tachycardia and leukocytosis. She has no active signs of infection. This is likely reactive from her recent surgical procedure. She is also received dexamethasone. Restart Xanax as needed for anxiety. Restart Ambien at bedtime. Restart Synthroid. DVT prophylaxis: SCDs Discussed with: Patient, nursing Anticipated discharge: 1-[address]: Home A total of 30 minutes was spent on the care of this complex patient more than 50% of the time was spent in counseling and care coordination. Patient injured her decision maker if she can't make decisions for her self. Patient would like to be full code. Thank you for this consultation. Please call [facility] with additional questions or concerns. Past Medical History Past Medical History: Thyroid Disorder History of Any Multi-Drug Resistant Organisms: None Reported Past Surgical History: Breast Surgery, Orthopedic Surgery, Tubal Ligation, Uterine Ablation Additional Past Surgical History / Comment(s): bg bunionectomy, bg shoulder rotator cuff repair, breast augmentation, ASD closure 2008, breast reconstruction/excess tissue removal 2000, rt pelvic lymph node removed 1993 pain clinic procedures Past Anesthesia/Blood Transfusion Reactions: No Reported Reaction Smoking Status: Never smoker - Past Family History Mother Family Medical History: Cancer Additional Family Medical History / Comment(s): lung CA Medications and Allergies Home Medications Medication Instructions Recorded Confirmed Type Cyclobenzaprine [Flexeril] 10 mg PO HS 07/01/20 04/11/22 History Ibuprofen [Motrin] 600 mg PO Q8HR PRN 07/01/20 04/11/22 History traMADol HCL [Ultram] 50 mg PO TID PRN 07/01/20 04/11/22 History Levothyroxine Sodium [Synthroid] 100 mcg PO QAM 03/28/22 04/07/22 History Zolpidem [Ambien] 10 mg PO HS 03/28/22 04/11/22 History ALPRAZolam [Xanax] 0.25 mg PO DAILY PRN 04/07/22 04/07/22 History Cyclobenzaprine [Flexeril] 5 mg PO TID #90 tablet 04/12/22 Rx Gabapentin [Neurontin] 300 mg PO TID #90 cap 04/12/22 Rx HYDROcodone/APAP 10-325MG [Stanford 1 tab PO Q4-6H PRN #56 tab 04/12/22 Rx 10-325] Sennosides/Docusate Sodium [Senna 1 each PO DAILY PRN #20 capsule 04/12/22 Rx Plus 8.6-50 mg Softgel] cefaDROXiL [Duricef] 500 mg PO Q12HR 3 Days #6 cap 04/12/22 Rx Allergies Allergy/AdvReac Type Severity Reaction Status Date / Time No Known Allergies Allergy Verified 04/11/22 08:16 Physical Exam Vitals: Vital Signs Temp Pulse Resp BP Pulse Ox 04/12/22 14:00 98.5 F 82 19 146/88 93 L 04/12/22 08:00 98.4 F 81 18 138/84 94 L 04/12/22 02:00 98.8 F 90 15 128/76 97 04/12/22 00:20 98.1 F 114 H 15 140/74 99 04/11/22 20:20 98 F 107 H 16 148/92 98 04/11/22 18:45 97.8 F 101 H 18 152/94 95 04/11/22 17:30 83 16 148/83 100 04/11/22 17:00 89 16 162/92 100 04/11/22 16:30 94 16 154/90 100 04/11/22 16:15 84 16 158/87 100 04/11/22 16:00 90 16 161/96 100 04/11/22 15:45 94 16 146/84 100 Intake and Output 04/12/22 04/12/22 04/12/22 06:59 14:59 22:59 Intake Total 240 Output Total 635 400 Balance -395 -400 Intake: Intake, IV Titration 240 Amount Lactated Ringers 1,000 ml 240 @ 20 mls/hr IV .Q24H [facility] Rx#:[id number] Output: Drainage 35 Anterior Neck 35 Urine 600 400 Other: Voiding Method Indwelling Catheter # Voids 1 Results CBC & Chem 7: 04/12/22 06:45 04/12/22 06:45 Labs: Abnormal Lab Results - Last 24 Hours (Table) 04/12/22 04/12/22 Range/Units 06:45 06:45 WBC 16.6 H (3.8-10.6) k/uL Neutrophils # 13.1 H (1.3-7.7) k/uL Glucose 135 H (74-99) mg/dL
[2022-04-12] MEDS ORDERED: ZOLPIDEM 5 MG TAB PO PRN (21:00)
[2022-04-13] MEDS: ACETAMINOPHEN TAB 325 MG TAB PO SCH ×2 (00:12→06:49)
[2022-04-13] MEDS: HYDROmorphone 0.5 MG/0.5 ML SYRINGE IVP PRN (02:44)
[2022-04-13] MEDS: HYDROcodone/APAP 10-325MG 1 EACH TAB PO PRN (04:45)
[2022-04-13] MEDS: LACTATED RINGERS 1,000 ML IV SCH (06:50)
[2022-04-13] MEDS: LEVOTHYROXINE 100 MCG TAB PO SCH (06:50)
[2022-04-13] MEDS: GABAPENTIN 300 MG CAP PO SCH (08:24)
[2022-04-13 08:29] VITALS: BP 129/84; PULSE 91; RESP 20; TEMP 98.6
--- NOTE | 2022-04-13 08:52 | P.PN ---
Subjective Progress Note Date: 04/13/22 Principal diagnosis: C3-C7 Spondylosis with Stenosis C3-C4 Kyphotic Deformity Bilateral Upper Extremity Radiculopathy Patient seen and examined at bedside. Patient is resting sitting up in bed and tolerating breakfast well. Her spouse is at bedside. Patient states that her pain is managed on current regimen. Surgical dressing is CDI. Patient reports she is feeling much better today and is ready to go home. She states her symptoms prior to surgery have improved. She still has slight numbness and tingling to fingertips. She denies fevers/chills, nausea/vomiting, or chest pain. Objective - Vital Signs Vital signs: Vital Signs Temp 98.6 F 04/13/22 08:00 Pulse 91 04/13/22 08:00 Resp 20 04/13/22 08:00 BP 129/84 04/13/22 08:00 Pulse Ox 94 L 04/13/22 08:00 FiO2 Intake & Output 04/12/22 04/13/22 04/13/22 18:59 06:59 18:59 Output Total 400 Balance -400 Output: Urine 400 Other: Voiding Method Indwelling Catheter Toilet Indwelling Catheter # Voids 1 1 - Exam Physical Examination General: The patient is awake and alert, in no acute distress Skin: Skin is warm and dry with no obvious rashes or lesions. Hairy patches absent, no dorsal skin dimples, no cafe au lait spots. Surgical incision to the right anterior cervical region, dressing CDI. Eye: Pupils are equal, round and reactive to light, extra-ocular movements are intact; there is normal conjunctiva bilaterally. Neck: The neck is supple, there is slight tenderness and limited ROM due to surgical procedure Cardiovascular: There is a regular rate and rhythm. No murmur, rub or gallop is appreciated. Respiratory: Lungs are clear to auscultation, respirations are non-labored, breath sounds are equal. Gastrointestinal: Soft, non-distended, non-tender abdomen . Back: There is no tenderness to palpation in the midline, paralumbar, parathoracic or buttocks region. There is no obvious deformity . Musculoskeletal: ROM limited secondary to pain and stiffness from surgical procedure. Muscle strength 5/5 in all major muscle groups of the bilateral lower extremities. 4/5 in bilateral upper extremities. Neurological: CN 2-12 intact. There are no obvious motor or sensory deficits. Movement and coordination equal and intact. Sensory exam to light touch intact C5-T1 and intact from L2-S1. Reflexes 2/4 in bilateral upper and lower extremities. Negative Hoffmans, babinski, and clonus signs. Psychiatric: Cooperative, appropriate mood & affect, normal judgment. - Labs CBC & Chem 7: 04/12/22 06:45 04/12/22 06:45 Assessment and Plan Assessment: s/p Post Op day 2: C3-C6 ACDF C3-C7 Spondylosis with Stenosis C3-C4 Kyphotic Deformity Bilateral Upper Extremity Radiculopathy Plan: Plan: -Appreciate x ray consultant and team management. -Activity: Ambulate QID, OOB all meals, up and about, limit lifting bending twisting to less than 5 lbs. Use walker or cane if needed for stability. -Daily PT/OT, increase ambulation strength and balance. -Soft collar when up and about, not needed in bed or chair -Pain control: Adequate at this time -Meds: reviewed -GI ppx: senna, Miralax -DVT PPX: Heparin, TEDS -Hygiene: Shower today. Maintain dressing clean and dry. -Encourage IS 10x/hr -Dispo: Anticipate discharge home today. *I reviewed and discussed this case with my attending Dr. Wilson, whom has reviewed this chart and films and is in agreement with assessment and plan of care as outlined above. I have personally seen and examined the patient, performed the documentation and the assessment and plan as written. Number of minutes spent on the visit: 20m.
--- NOTE | 2022-04-13 11:07 | P.OP ---
Date of Procedure: 04/11/22 Preoperative Diagnosis: 1. C3-6 spondylosis with stenosis 2. C3-4, C4-5 spondylolisthesis with stenosis 3. UE radiculopathy 4. UE weakness 5. Mechanical neck pain Postoperative Diagnosis: 1. C3-6 spondylosis with stenosis 2. C3-4, C4-5 spondylolisthesis with stenosis 3. UE radiculopathy 4. UE weakness 5. Mechanical neck pain Procedure(s) Performed: 1. C3-4, C4-5, C5-6 anterior cervical discectomy and fusion (30487, [id number]) 2. Insertion of biomechanical device x3 ([id number]) 3. Placement of anterior cervical non integrated plates x3 C3-6 (22947) Use of IONM Implants: -Sylvia cascadia 12 deg lordotic cages 9mm, 8mm, 9mm -Choice Spine boomerang plate x3 -Bio4 -Autrograft Anesthesia: GETA Surgeon: Hola Wilson Broadcast Designer #1: Anton Sung (Was presented and assisted with all aspects of the case from positioning, exposure, decompression, fusion, hardware, closure and dressing. ) Estimated Blood Loss (ml): 50 IV fluids (ml): 1,000 Urine output (ml): 250 Pathology: none sent Condition: stable Disposition: PACU Indications for Procedure: Ms. Le is presenting for evaluation of cervical pain. It was my pleasure to have seen and examined Ms. Le. In our visit today we have had a chance to go over subjective complaints, physical examination findings and treatments including the natural course history without intervention and various interventional options. The patients imaging demonstrates: XRay taken on 02/01/22 of Cervical Spine: Moderate top severe multilevel spondylitic changes with reversal of the normal cervical lordosis. Grade 1 retrolisthesis C4 onto C5. Diminished disc height throughout cervical spine. No acute osseous abnormalities. MRI [id number]/25/2022 of Cervical Spine: Images reviewed demonstrate severe spondylotic changes from C3-7 with kyphotic deformity noted C3-4 and C4-5 due to spondylolisthesis. There is disc dessication, height loss, herniation and stenosis related to these changes. This causes moderate to severe central and foraminal stenosis at these levels. There are no fractures noted. C0-1 and C1-2 are stable. On physical exam, Ms. Le demonstrates restricted cervical ROM with bilateral upper extremity radiculopathy and left upper extremity weakness. I have explained to the patient that as their condition progresses it will cause further neurological deficits and eventual paralysis. Based on the patients imaging, physical exam, and the rapid progression and disabling nature of their symptoms, at this time I recommend surgery in the form or a: cervical (C3-C6) ACDF. I discussed the risk and benefits of this procedure at length with Ms. Le. The patient agreed to considered pursuing the procedure abovementioned. Prior to surgery, she should follow up with her PCP (Cardio, ID, IM etc) for clearance. Questions were invited and answered, and the patient wishes to proceed as outlined below. Currently, I am recommendin.cervical (C3-C6) ACDF 2.Follow up with PCP for surgical clearance 3.Review of surgical risks and benefits as well as an educational packet on the proposed surgical procedure. Description of Procedure: The patient was seen and examined in the preoperative area. All preoperative protocols were followed. Informed consent was obtained risks and benefits of the procedure were discussed at length. Risks including bleeding infection damage to the surrounding tissue and risk of reoperation were discussed with the patient. Risk of anesthesia up to and including was a discussed with the patient. These are outlined in the risk review. They were willing to accept these risks and all of the risks of surgery. The patient was given a weight- based dose of antibiotics in the form of 2 g Ancef. The patient was seen and evaluated by the anesthesia team who deemed them fit for surgery. The site was marked, the patient was willing to proceed with the procedure. The patient was transferred to the operative suite by the Department of anesthesia. They were then drifted off to sleep by the department anesthesia and GETA was performed. The patient tolerated this well. [Rincon catheter was placed by nursing staff, atraumatically]. Once confirmation of lines and ventilation the patient was transferred to a flat top Markos table very carefully. Shoulder roll was placed and head was placed on a jelly. Shoulders were carefully taped to the table.. All bony prominences including wrists, elbows, axilla, chest, hips, and thighs, and feet were padded very well. Speci al attention was paid to the genitalia and these were padded accordingly. SCDs were placed on bilateral lower extremities and were connected. Arms were well padded and placed patellar side thumbs-up well-padded. Once in position, again we confirmed good ventilation capabilities and that lines were running appropriately. The patient's anterior cervical spine was then exposed. 1010s were placed outlining the incision site. Standard alcohol was used to clean the incision site and allowed to dry. C-arm was used to biomark the patient and confirm level for incision which was marked with a skin marker. Operative briefing was performed with all teams and everyone in agreement to proceed. The patient was then prepped and draped in a normal sterile fashion. Timeout was then performed and all parties were in agreement with the procedure to be performed. transverse skin incision was made over the previously marked area and a standard Marques-Morris approach to anterior cervical spine was taken out. Blunt dissection was taken down in the interval between the's SCM and strap muscles until the midline structures can be mobilized. There was a moderate amount of scar tissue between the esophagus and the anterior cervical fascia which was carefully released. Once midline structures were mobilized a blunt probe was selected and placed in the lateral fluoroscopic image confirmed levels for surgery. We then performed subperiosteal dissection of the longissimus muscles bilaterally at these levels and retractors were placed deep to these. Starting at C3-C4 Blue Ridge pins were placed into C3 and C4 respectively using lateral fluoroscopic guidance. We then placed the distractor and careful distraction was taken place. This level was extremely mobile and once distraction was taken out motors around motors were improved after distraction. Complete discectomy was then performed anteriorly using Shearer. High-speed bur was then used to remove anterior and posterior osteophytes of C3 and C4. PLL was identified and resected using up-biting curettes as well as Kerrison rongeurs and bilateral foraminotomies were performed using Kerrison rongeurs well. Once this was accomplished meticulous hemostasis was performed the disc space was then sized and a spacer was selected and placed. It was impacted in the position under lateral fluoroscopic guidance. Before and after motors were run and they were stable. Once in good position distraction was removed and the Blue Ridge pin was removed from C3 and bone wax placed in its void. We then selected a boomerang plate and this was then placed under lateral fluoroscopic guidance and locked into position with 2 screws. Screw locking mechanism was then set and the screws had good purchase. We then turned our attention to the C4-C5 interspace the retractors were carefully removed subperiosteal dissection is made of the longissimus muscles. We then placed a Blue Ridge pin into see 5 performed gentle distraction across this level. This level is also very mobile and after distraction motors were run and there were stable. Then performed complete discectomy anteriorly using Kerrison rongeurs Shearer high-speed bur as well as curettes. Once good bleeding endplates were accomplished high-speed bur was used to remove anterior posterior osteophytes of C4. PLL was identified and resected using up-biting curette as well as Kerrison rongeurs and bilateral foraminotomies performed with Kerrison rongeurs. we then sized the disc space under lateral fluoroscopic guidance and a cage was selected. This cage was packed with autograft allograft and then impacted into place. Motors room before and after an were stable. We then removed the Pj pin from C4 and bone wax placements void. We then selected a boomerang plate this plate was then placed and screws placed through it in good position under lateral fluoroscopic. Screws had good purchase and the locking mass mechanism was then turned our attention to the C5-C6 region. retractors were replaced and a Pj pin was placed into C6 again gentle distraction was taken out over this level. We performed anterior discectomy completely with Bulmaro Kerrison rongeur and curette. We then removed osteophytes with high-speed bur of anterior and posterior C5 vertebral body as well as C6. PLL was identified and resected using up-biting curette as well as Kerrison rongeurs. Kerrison rongeur was then used for bilateral foraminotomies and decompression. Meticulous hemostasis was performed good decompression was accomplished with an selected and sized a cage for this level was cage was then packed and then impacted into place under lateral fluoroscopic guidance. Once in good position we placed a boomerang plate over this level as well secured it with screws and set the locking mechanism. Screws a good purchase. Motors before and after cage placement were stable. The final motors were run on that all hardware was in and they were stable. We then copiously irrigated with normal sterile saline. Meticulous hemostasis again performed. The retractors were then removed. Surgicel was placed deep within the wound along with a deep drain was present sewn into position. We then proceeded with layer closure first in the platysma muscle which had been split longitudinally so this with 3-0 Vicryl. We then sewed the subcu tissue with 3-0 Vicryl and the skin was sewn with 40 strata fix. Then clean the wound and the skin was dressed with glue the glue was allowed to dry and then a dressing was placed along with a drain sponge and a Tegaderm. Patient was then placed in a soft collar. The patient was transferred back to their hospital bed atraumatically. Drain continued to hold suction and were in good position. Patient was then awakened and extubated by the department of anesthesia having tolerated the procedure very well with no complications. They were transferred to the postoperative car e unit in stable condition.
== END 2022-04-13 10:17 | disposition home or self-care (01) | DRG 473 ==
LOC: 2ORMAIN 07:51 → 2SICU 18:06
PROVIDERS: ADMIT Orthopaedic Surgery; ATTEND Orthopaedic Surgery
PROC: 0RT30ZZ Resection of Cervical Vertebral Disc, Open Approach (ICD-10-PCS; 2022-04-11)
PROC: 0RG20A0 Fusion of 2 or more Cervical Vertebral Joints with Interbody Fusion Device, Anterior Approach, Anterior Column, Open Approach (ICD-10-PCS; 2022-04-11)
PROC: 01N10ZZ Release Cervical Nerve, Open Approach (ICD-10-PCS; 2022-04-11)
PROC: 0RG2070 Fusion of 2 or more Cervical Vertebral Joints with Autologous Tissue Substitute, Anterior Approach, Anterior Column, Open Approach (ICD-10-PCS; principal; 2022-04-11 09:45)
DX: M43.12 Spondylolisthesis, cervical region (principal); E03.9 Hypothyroidism, unspecified; M47.22 Other spondylosis with radiculopathy, cervical region; M48.02 Spinal stenosis, cervical region; M40.202 Unspecified kyphosis, cervical region; M50.121 Cervical disc disorder at C4-C5 level with radiculopathy; F41.9 Anxiety disorder, unspecified; G47.00 Insomnia, unspecified; G47.8 Other sleep disorders; M25.511 Pain in right shoulder; M25.512 Pain in left shoulder; M54.50 Low back pain, unspecified; R51.9 Headache, unspecified; R13.10 Dysphagia, unspecified; Z79.890 Hormone replacement therapy; Z79.899 Other long term (current) drug therapy; Z87.74 Personal history of (corrected) congenital malformations of heart and circulatory system; Z28.310 Unvaccinated for COVID-19
CPT/HCPCS: 72040; 72125; 80048; 81025; 85025; 86850; 86900; 86901

== ENCOUNTER → 2023-01-10 | Outpatient (CLI) | payer OTHER ==
--- NOTE | 2023-01-11 07:35 | US ---
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 Patient states it has inc reased in size. No injury. TECHNIQUE: Grayscale imaging of the left posterior upper fossa FINDINGS: Posterior left knee scanned with nonvascular complex fluid collection visualized = 5.8 x 3 .3 x 2.5 cm. 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
== END | disposition home or self-care (01) ==
LOC: RADUSWWP 14:39
PROVIDERS: ATTEND Family Medicine
DX: M71.21 Synovial cyst of popliteal space [Baker], right knee (principal)

== ENCOUNTER 2023-05-05 05:48 | Day surgery (SDC) | payer OTHER ==
[2023-05-02 12:20] VITALS: BMI 24.8
[~2023-05-05 05:48] MED LIST changes: -ACETAMINOPHEN TAB 500 MG TAB PO PRN; -DEXAMETHASONE SOD PHOSPHATE 4 MG/ML 1 ML VIAL IV ONE; -GABAPENTIN 300 MG CAP PO PRN; -ONDANSETRON 4 MG/2 ML VIAL IVP ONE; -ONDANSETRON 4 MG/2 ML VIAL IVP PRN; +Pre Op ABX Message 1 EACH MISC MISCELLANE ONE; -TRANEXAMIC ACID IN NACL,ISO-OS 1,000 MG in SALINE 1 100ML.BAG IVPB PRN
[2023-05-05] MEDS ORDERED: LACTATED RINGERS 1,000 ML IV SCH (05:56)
[2023-05-05] MEDS ORDERED: DEXAMETHASONE SOD PHOSPHATE 4 MG/ML 1 ML VIAL IV ONE (05:56)
[2023-05-05] MEDS ORDERED: LIDOCAINE 1% (10MG/ML) FOR IV START INTRADERMA PRN (05:56)
[2023-05-05] MEDS ORDERED: HYDROmorphone 0.5 MG/0.5 ML SYRINGE IVP PRN (05:56)
[2023-05-05] MEDS ORDERED: MIDAZOLAM 2 MG/2 ML VIAL IV PRN (05:56)
[2023-05-05] MEDS ORDERED: ONDANSETRON 4 MG/2 ML VIAL IVP ONE (05:56)
[2023-05-05] MEDS ORDERED: MIDAZOLAM 2 MG/2 ML VIAL IVP ONE (06:52)
[2023-05-05] MEDS ORDERED: fentaNYL (PF) 50 MCG/ML 2 ML AMP IVP ONE (07:00)
[2023-05-05] MEDS ORDERED: ROPIVACAINE 5 MG/ML 30 ML VIAL ONE ×2 (07:34)
[2023-05-05] MEDS ORDERED: PROPOFOL 10 MG/ML 20 ML VIAL IV ONE ×2 (07:34)
[2023-05-05] MEDS ORDERED: MIDAZOLAM 2 MG/2 ML VIAL ONE ×2 (07:34)
[2023-05-05] MEDS ORDERED: SODIUM CHLORIDE 0.9% (PF) 10 ML VIAL ONE ×2 (07:34)
[2023-05-05] MEDS ORDERED: fentaNYL (PF) 50 MCG/ML 2 ML AMP ONE ×2 (07:34)
[2023-05-05] MEDS ORDERED: LIDOCAINE 1% INJ 10MG/ML (20 ML MDV) ONE ×2 (07:34)
--- NOTE | 2023-05-05 07:37 | P.ANPRN ---
Procedure Note - Anesthesia - Nerve Block Performed Left Adductor Canal Single Time Out Performed: Yes Date of Procedure: 05/05/23 Procedure Start Time: 06:52 Procedure Stop Time: 06:58 Location of Patient: PreOp Indication: Acute Post-Operative Pain, Requested by Surgeon Sedation Type: Sedate with meaningful contact maintained Preparation: Sterile Prep Position: Supine Needle Types: Pajunk Needle Gauge: 21 Ultrasound used to visualize needle placement: Yes Ultrasound used to observe medication spread: Yes Injectate: 0.5% Ropivacaine (see comment for volume) (10ml+NS 10ml) Blood Aspirated: No Pain Paresthesia on Injection Noted: No Resistance on Injection: Normal Image Stored and Saved: Yes Events: Uneventful and Well Tolerated
--- NOTE | 2023-05-05 07:40 | P.ANPRN ---
Procedure Note - Anesthesia - Nerve Block Performed Left Popliteal Single Time Out Performed: Yes Date of Procedure: 05/05/23 Procedure Start Time: 07:00 Procedure Stop Time: 07:10 Location of Patient: PreOp Indication: Acute Post-Operative Pain, Requested by Surgeon Preparation: Sterile Prep Position: Right Lateral Needle Types: Pajunk Needle Gauge: 21 Ultrasound used to visualize needle placement: Yes Ultrasound used to observe medication spread: Yes Injectate: 0.5% Ropivacaine (see comment for volume) (10ml+NS 10ml) Blood Aspirated: No Pain Paresthesia on Injection Noted: No Resistance on Injection: Normal Image Stored and Saved: Yes Events: Uneventful and Well Tolerated
[2023-05-05] MEDS ORDERED: SODIUM CHLORIDE 0.9% 100 ML with ceFAZolin 2,000 MG IV ONE ×2 (07:50)
[2023-05-05] MEDS ORDERED: LACTATED RINGERS 1,000 ML IV ONE (08:06)
--- NOTE | 2023-05-05 09:03 | P.OP ---
Date of Procedure: 05/05/23 Preoperative Diagnosis: Hallux valgus left foot Postoperative Diagnosis: Same Procedure(s) Performed: Bunionectomy by double osteotomy left foot Implants: Sylvia 4.0 mm chamfered head cannulated screws Wilson 2.5 mm fully threaded headless screw Anesthesia: MALIA Surgeon: Rishi Bay Estimated Blood Loss (ml): 3 Pathology: none sent Condition: stable Disposition: PACU Description of Procedure: Prior to the patient being brought to the operative room, anesthesia administered a nerve block on the left lower extremity. Then the patient was brought into the operative room and placed on table in the supine position. Timeout was taken to confirm correct patient identifiers, correct laterality of surgery, and correct procedure. Once all staff in the room were in agreement with the timeout, the patient was induced and placed under general anesthesia. A well-padded tourniquet was placed on the left thigh and then 20 mL of 0.25% Marcaine was administered as an ankle block. The foot was then prepped and draped in usual manner. Under fluoroscopic visualization, metallic wires were used to identify anatomic landmarks on the foot. This included the first tarsometatarsal joint, the first metatarsal phalangeal joint, as well as the midline of the first metatarsal shaft. A marker was used to identify these on the skin. Under direct fluoroscopic visualization and initial guidewire was placed at the base of the first metatarsal and the medial aspect. It was then advanced distally and laterally until it penetrated the lateral cortex and the distal one third. Fluoroscopy the was used to make sure that the wire was and correct alignment both on AP and lateral views. Once that was established small stab incision was made over the skin at the medial aspect of the first metatarsal neck. An elevator was used to remove the periosteum dorsally and plantarly. A rotary bur was inserted on the medial side of the first metatarsal this was located approximately 20 mm from the first metatarsal phalangeal joint. The bur was advanced until it breach the lateral cortex and then with rotation movement the bur was used to cut through the first metatarsal dorsally and plantarly. Also the foot position was such that it was a straight dorsal to plantar cut. Once completed fluoroscopy was used to insert a distal traction and correction device which was then temporarily fixated the first metatarsal head. Then the correction device was turned to laterally displace the metatarsal head to correct the intermetatarsal angle. Once sufficient correction was obtained initial guidewire was advanced to capture the first metatarsal head towards the lateral aspect. A parallel guide was placed over the initial wire and then the second wire was then inserted through the guide and advanced through the first metatarsal into the metatarsal head. Fluoroscopy was used to confirm the proper placement of both wires, that they were parallel to the first metatarsal axis and were also at the midline. The more proximal wire was then advanced to the plantar aspect of the foot and then clamped with a hemostat. Small stab incision was made to the skin and then really was performed over the proximal wire into the first metatarsal head. Minimally invasive bunionectomy screw was then inserted over the guidewire and advanced until there was full purchase of the threads and that the bevel was parallel to the medial cortex of the first metatarsal. A second wire was then drilled and another MIS mini and the screw was inserted over the wire and advanced until a purchase the medial cortex of the first metatarsal on the bevel was also parallel. Final fluoroscopic imaging showed proper placement of both screws. There was maintained correction of the intermetatarsal angle. Both wires were then removed. Then attention directed the proximal phalanx of the great toe. Fluoroscopy was used to identify an area of the Irvin osteotomy along the medial aspect of the proximal phalanx. A small stab incision was made through the skin and the osvaldo vator used to raise periosteum. The bur was inserted just proximal to the midpoint of the phalanx it was advanced to the lateral cortex but not through it. The bur was rotated dorsally and plantarly to perform the osteotomy. Then the osteotomy was reduced and then the bur was inserted again and the same process was used to remove more bone to allow for the angular correction. Once the osteotomy was completed a guidewire for a 2.0 fully threaded headless screw was inserted at the distal medial head of the proximal phalanx that was advanced in the proximal lateral direction across the osteotomy. Overdrill was performed and the screw was inserted across the wire and advanced until the threads engaged the cortex and providing compression across the osteotomy. A bone reduction bur was inserted near the first metatarsal osteotomy and that was used to reduce the medial shelf of the first metatarsal created by the shifting of the capital fragment. Final fluoroscopic imaging showed full c orrection of the deformity. All hardware was properly aligned. The wounds were thoroughly irrigated with antibiotic saline. Skin closure was done with 3-0 nylon. A linear gauze and a dry sterile dressing applied to left foot. The patient tolerated above procedure and anesthesia well which recovery with vital signs stable.
[2023-05-05 09:10] VITALS: RESP 16; TEMP 98.1
[2023-05-05 10:28] VITALS: BP 131/75; PULSE 87
== END 2023-05-05 10:50 | disposition home or self-care (01) ==
LOC: OR 05:48
PROVIDERS: ATTEND Podiatrist
DX: M20.12 Hallux valgus (acquired), left foot (principal); G89.18 Other acute postprocedural pain; E07.9 Disorder of thyroid, unspecified; F10.90 Alcohol use, unspecified, uncomplicated; Z79.890 Hormone replacement therapy; Z79.899 Other long term (current) drug therapy; Z98.51 Tubal ligation status; Z98.890 Other specified postprocedural states
CPT/HCPCS: 28299; 64447; 64445; C1713; J2250; J1100; J2405; J0690; J2001; J3010; J2795; J2704

== ENCOUNTER → 2023-05-29 | Outpatient (CLI) | payer OTHER ==
--- NOTE | 2023-05-30 16:31 | MM ---
Reason for Exam: Screening (asymptomatic). Last mammogram was performed 1 year(s) and 11 month(s) ago. Patient History: Menarche at age 15. First Full-Term at age 23. Postmenopausal. 11/2020, Bilateral Implants. Risk Values: Rosa 5 year model risk: 0.9%. NCI Lifetime model risk: 8.0%. Prior Study Comparison: 05/06/2016 Bilateral Screening Mammogram, [facility]. 06/07/2017 Bilateral Screening Mammogram, [facility]. 07/15/2021 Bilateral Screening Mammogram, [facility]. Tissue Density: The breast tissue is extremely dense which could obscure a lesion on mammography. Findings: Analyzed By CAD. Pattern appears symmetrical and stable. No significant interval change is evident. Bilateral breast prostheses are present. Some chronic nodularities in the upper left mediolateral oblique view. No suspicious groups of microcalcifications, spiculated or lobular masses, architectural distortion or other secondary signs of malignancy are mammographically apparent. Overall Assessment: Benign, BI-RAD 2 Management: Screening Mammogram of both breasts in 1 year. A negative mammogram report should not preclude additional follow up of suspicious palpable abnormalities. Patient should continue monthly self breast exam. A clinical breast exam by your physician is recommended on an annual basis and results should be correlated with mammographic findings. Electronically signed and approved by: William Mead D.O. Radiologis
== END | disposition home or self-care (01) ==
LOC: RADMAMWWP 09:43
PROVIDERS: ATTEND Family Medicine
DX: Z12.31 Encounter for screening mammogram for malignant neoplasm of breast (principal); Z78.0 Asymptomatic menopausal state; Z98.82 Breast implant status
CPT/HCPCS: 77067

== ENCOUNTER → 2024-06-24 | Outpatient (CLI) | payer OTHER ==
--- NOTE | 2024-06-24 11:24 | XR ---
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 Along for this limitation, no acute fracture, subluxation, dislo cation is seen. No soft tissue calcification or marginal erosions. IMPRESSION: No acute osseous abnormality seen. [facility], Workstation: [facility], 06/24/2024 11:21 AM
== END | disposition home or self-care (01) ==
LOC: RADXRYALE 10:31
PROVIDERS: ATTEND Physician Assistant
DX: R22.32 Localized swelling, mass and lump, left upper limb (principal); M79.645 Pain in left finger(s)